=== PATIENT | male | born 1975 | race Two or more races ===

== ENCOUNTER 2023-02-18 22:35 | Emergency (ER) | payer OTHER ==
[2023-02-18 22:54] VITALS: BP 140/96; PULSE 79; RESP 18; TEMP 98.7; BMI 37.8
[2023-02-18] MEDS ORDERED: IBUPROFEN 600 MG TABLET (FP) PO ONE (23:46)
[2023-02-18] MEDS ORDERED: IBUPROFEN 400 MG TABLET (FP) PO ONE (23:47)
== END 2023-02-18 23:51 | disposition home or self-care (01) ==
LOC: JER 22:35 → JERFT 22:35
DX: M25.542 Pain in joints of left hand (principal); R22.32 Localized swelling, mass and lump, left upper limb
CPT/HCPCS: 73140-TC-LT-FY; 99283-25

== ENCOUNTER 2024-03-10 06:56 | Emergency (ER) | payer OTHER ==
[2024-03-10 07:03] VITALS: BP 134/87; PULSE 78; RESP 18; TEMP 97.8; BMI 35.6
[2024-03-10] MEDS ORDERED: ACETAMINOPHEN 325 MG TABLET (FP) ONE (08:18)
[2024-03-10] MEDS ORDERED: LIDOCAINE 4% PATCH TP ONE (08:19)
[2024-03-10] MEDS ORDERED: KETOROLAC TROMETHAMINE 15 MG/ML VIAL ONE (08:19)
[2024-03-10] MEDS: LIDOCAINE 4% PATCH TP ONE (08:33)
[2024-03-10] MEDS: KETOROLAC TROMETHAMINE 15 MG/ML VIAL IM ONE (08:35)
[2024-03-10] MEDS: ACETAMINOPHEN 500 MG TABLET (FP) PO ONE (08:36)
[2024-03-10] MEDS ORDERED: LIDOCAINE PATCH REMOVAL MC ONE (22:00)
== END 2024-03-10 09:21 | disposition home or self-care (01) ==
LOC: JER 06:56
PROC: 3E0233Z Introduction of Anti-inflammatory into Muscle, Percutaneous Approach (ICD-10-PCS; principal; 2024-03-10)
DX: M54.50 Low back pain, unspecified (principal)
CPT/HCPCS: 99284-25